=== PATIENT | male | born 1940 | race Caucasian/White ===

== ENCOUNTER → 2017-11-29 15:07 | Outpatient (CLI) | payer OTHER, SELFPAY ==
[2017-11-29 15:19] LABS: Bacteria Urine None Seen; RBC Urine None Seen (0-5/HPF); WBC Urine None Seen (0-5/HPF)
[2017-11-29 15:42] LABS: Appearance Urine UA CLEAR; Bilirubin Urine UA NEGATIVE (NEGATIVE); Color Urine UA YELLOW; Glucose Urine UA NEGATIVE (Normal); Ketones Urine UA NEGATIVE (NEGATIVE); Leukocyte Esterase Urine UA NEGATIVE (NEGATIVE); Nitrite Urine UA Negative (Negative); Occult Blood Urine UA NEGATIVE (Negative); Protein Urine UA NEGATIVE (Negative); Specific Gravity Urine UA <=1.005 (1.000-1.035); Urobilinogen Urine UA 0.2 E.U./dL (0.2)
[2017-11-29 15:51] LABS: Culture Indicated Urine Cult Not Indicated; Squamous Epithelial Cell Urine 0-1 /HPF; Urine Comments Microscopic Normal
[2017-11-29 16:00] LABS: Add Manual Diff / Slide Review NO; Basophils Percent Auto 0.5 % (0-2); Eosinophils Percent Auto 0.3 % (2-4); Hematocrit 44.6 % (41-53); Hemoglobin 15.6 g/dL (13.5-17.5); Lymphocytes Percent Auto 15.2 % (25-40); Mean Corpuscular Hemoglobin 32.2 PG (26-34); Monocytes Percent Auto 2.3 % (3-14); Neutrophils Absolute Auto 5600 /uL (3000-5900); Neutrophils Percent Auto 81.7 % (50-75); Platelet Count 279 X10^3/uL (150-400); Red Blood Cell Count 4.85 X10^6/uL (4.5-5.9); White Blood Cell Count 6.9 X10^3/uL (4.5-11.0)
[2017-11-29 16:06] LABS: Hemoglobin A1C% w Est Avg Glu 5.6 % (4.0-6.0)
[2017-11-29 16:35] LABS: Blood Urea Nitrogen 20 mg/dL (9-20); Calcium 9.8 mg/dL (8.4-10.2); Carbon Dioxide 26 mmol/L (22-32); Chloride 102 mmol/L (98-107); Estimated Glomerular Filt Rate > 60.0 mL/min (>60); Glucose 165 mg/dL (80-110); HEMOLYSIS < 15 (0-50); Potassium 5.1 mmol/L (3.4-5.1); Sodium 139 mmol/L (137-145)
[2017-11-29 16:43] LABS: Transferrin 264 mg/dL (206-381)
== END ==
PROVIDERS: PCP Family Medicine; Visit Provider Orthopaedic Surgery
DX: Z01.818 Encounter for other preprocedural examination (principal); M25.561 Pain in right knee; Z01.812 Encounter for preprocedural laboratory examination; D64.9 Anemia, unspecified; R73.9 Hyperglycemia, unspecified
CPT/HCPCS: 36415; 80048; 81001; 83036; 84466; 85025; 93005

== ENCOUNTER 2017-12-18 07:53 | Day surgery (SDC) | payer OTHER, SELFPAY ==
[2017-12-04 08:49] VITALS: BMI 33.8
[2017-12-18] VITALS (10 sets, daily range): BP systolic 121–144; BP diastolic 77–89; PULSE 61–69; RESP 10–16; TEMP 36–36.7; O2SAT 93–98; BMI 32.5
--- NOTE | 2017-12-18 08:54 | SUR.PREOP ---
small abrasion on left knee, small scab on left hand between thumb and second finger, 2 small scabs right arm.
[2017-12-18] MEDS: LACTATED RINGERS 1,000 ML 42 ML IV (09:10)
--- NOTE | 2017-12-18 09:49 | PM.PREOP ---
Pre-operative Note Interval Note Pre-op Check: Yes History & Physical Reviewed by Physician and Yes Exam Performed Changes: No
[2017-12-18] MEDS: CEFAZOLIN 2 GM/100 ML FROZ.PIGGY IV (10:50)
[2017-12-18] MEDS: BUPIVACAINE 0.25% W/ EPI VIAL 50 ML INJ (11:10)
[2017-12-18] MEDS: BUPIVACAINE LIPOSOME 266 MG/20 ML VIAL INJ (11:11)
[2017-12-18] MEDS: MORPHINE 4 MG/ML INJ INJ (11:12)
--- NOTE | 2017-12-18 12:08 | DI.RAD.S_ITS ---
PROCEDURE: XR KNEE RT 1TO2V INDICATIONS: post op total knee TECHNIQUE: 2 view(s) of the knee acquired. COMPARISON: [facility], CR, XR KNEE ARTHRITIC SERIES RT, 10/17/2017, 13:37. FINDINGS: Bones: Patient is status post knee joint arthroplasty. Hardware components are in expected positions. Visualized bony structures are intact. Soft tissues: Overlying postoperative changes are noted. IMPRESSION: Right knee arthroplasty with prosthesis in anatomic alignment. Dictated by: Hellen Chandra M.D. on 12/18/2017 at 13:04 Approved by: Hellen Chandra M.D. on 12/18/2017 at 13:05
--- NOTE | 2017-12-18 12:14 | PM.OP.1 ---
Operative Date/Time/Diagnoses Date of procedure: 12/18/17 Time of procedure: 12:00 Pre-op diagnosis: Right knee patellar fracture with loosening of patellar component Post-op diagnosis: same Procedure & Clinicians Procedure: 1. Revision of patellar component. 2. Open excision of loose bodies. Same procedure as scheduled: Yes Indications: The patient is a 77-year-old man who had a previously well-functioning total knee replacement. He developed the onset of peripatellar pain and new x-rays were obtained showing a patellar fracture with loosening of the patellar component. He has agreed to revision of the component and removal of loose fragments of bone and cement after discussion the risks benefits and alternatives. Risks discussed included but were not limited to: Possible need for patellectomy, failure to relieve pain, failure to improve function, stiffness, infection, nerve damage, deep venous thrombosis, pulmonary embolism, stroke, myocardial infarction, permanent paralysis and . Surgeon: Yong Hinkle Assistant Prosecuting Attorney: Yani Marin Click Yes if Unassisted: No Anesthesia Type: General and Local Operative Notes Findings: Loose fragments of cement and bone and partially loose patellar component. Closure Type: primary Specimen(s): none sent Implants & Drains: A 32 mm oval Pat II patellar component was removed. This was replaced with a 29 mm component. Applied: implant(s) Estimated Blood Loss (mL): 50 Blood products transfused: none Tourniquet time (min): 35 Procedure in detail: The patient was seen in the pre-operative area, where the patient identified the right knee as the operative site and this was marked with my initials. The patient received pre-operative antibiotics, and was taken to the operating room and placed on the operative table in the supine position. After satisfactory anesthesia, a stone lathe operator out was performed. The right leg was encircled with a tourniquet about the proximal thigh, and the leg was prepared from the toes to the tourniquet with ChloroPrep in the usual fashion and draped through sterile drapes. The leg was elevated and exsanguinated with Eschmark bandage and the tourniquet inflated to 250 mmHg pressure. The knee was approached through an approximately 18 cm incision using the prior scar and carried into the knee through a medial parapatellar arthrotomy. A large fragment of cement was immediately encountered just proximal to the tibial component and this was removed. The soft tissue surrounding the patella was excised to allow exploration of the patellar component. Three fragments of bone that were identified on the x-rays were identified and removed. I used an osteotome to determine whether the patellar component was loose and it appeared that the lateral portion of the patella was loose so the medial portion still had some fixation to bone. An oscillating saw was used to remove the component. A drill pin was used to remove the pegs. Loose cement was then removed. The partial-thickness defect in the quadriceps tendon that had been created by excision of the bone fragment was repaired with a #1 Tycron. The lug holes were drilled for the new patellar component. The patella was prepared with pulsatile lavage and the new patellar component cemented into position. Tracking was inspected and there was no need for lateral release. During cement hardening the capsule and subcutaneous tissues were injected with a mixture of 20 mL Exparel, 50 mL 0.25% Marcaine and 4 mg of morphine. The knee was copiously irrigated and the tourniquet deflated. Hemostasis was obtained. The capsule was closed with interrupted # 2 polyester suture. The subcutaneous layer was closed with 3-0 Vicryl, and the skin with a running 3-0 V-Lock suture and SteriStrips. An Aquacel Ag dressing was applied and the patient was taken to recovery having tolerated the procedure well. Complications: none Condition: stable Disposition: PACU Plan for aftercare: The patient will be maintained on a standard total knee protocol with strengthening of the quadriceps and hamstrings and gait as tolerated. Our plan is to discharge him today provided he has adequate pain control.
[2017-12-18] MEDS: HYDROMORPHONE 2 MG INJ 0.25 MG IV ×4 (12:24→12:39)
[2017-12-18] MEDS: fentaNYL 100 MCG/2 ML INJ 50 MCG IV ×2 (12:43→12:50)
[2017-12-18] MEDS: OXYCODONE IR 5 MG TABLET PO (12:58)
[2017-12-18] MEDS: OXYCODONE/ACETAMINOPHEN 5/325 TABLET 1 TAB PO (13:32)
--- NOTE | 2017-12-18 14:42 | SUR.PHASEII ---
1430 Patient and returned to the ER entrance (phone message by desk staff) stating that patient was bleeding through the dressing. Dressing was not completely saturated, but was by about 60-70%. Small amount of blood through louis wrap approx 2 diameter between 2 areas. Louis reinforced with ABD and wrapped with gauze. Does not appear to be currently bleeding. Patient appeared stable, color good, calm demeanor. They will call the surgeons office if bleeding does not stop or to clarify any instructions not on their discharge instructions.
== END 2017-12-18 14:03 | disposition home or self-care (01) ==
PROVIDERS: PCP Family Medicine; Visit Provider Orthopaedic Surgery
PROC: 0SRC0JZ Replacement of Right Knee Joint with Synthetic Substitute, Open Approach (ICD-10-PCS; CPT 27447; 2017-12-18 10:15)
DX: S82.041A Displaced comminuted fracture of right patella, initial encounter for closed fracture (principal); T84.032A Mechanical loosening of internal right knee prosthetic joint, initial encounter; M23.41 Loose body in knee, right knee; Z96.651 Presence of right artificial knee joint; Z87.891 Personal history of nicotine dependence; G47.30 Sleep apnea, unspecified
CPT/HCPCS: 27524; 73560; C1776; C9290; J0690; J1100; J1170; J2270; J2405; J2704; J3010

== ENCOUNTER 2018-05-22 07:25 | Outpatient (CLI) | payer OTHER, SELFPAY ==
[2018-05-22] VITALS (15 sets, daily range): BP systolic 124–148; BP diastolic 64–99; PULSE 55–69; RESP 16–18; TEMP 36.6; O2SAT 94–100
[2018-05-22] MEDS: MIDAZOLAM 5 MG/5 ML VIAL IV (08:38)
[2018-05-22] MEDS: LIDOCAINE 1% 20 ML INJ 10 ML INJ (08:56)
[2018-05-22] MEDS: BUPIVACAINE 0.25% (PF) VIAL 5 ML INJ (08:56)
--- NOTE | 2018-05-22 09:29 | P.PCN_ITS ---
Procedures Date/Time Date of procedure: 05/22/18 Time of procedure: 09:28 General Procedure description: PREOP DIAGNOSIS 1. RECALCITRANT FACET ARTHROPATHY, POST OP DIAGNOSIS 1. RECALCITRANT FACET ARTHROPATHY PROCEDURES 1. BILATERAL L4 AND L5 MEDIAL BRANCH RADIOFREQUENCY NEUROTOMY AND S1 DORSAL RAMUS BRANCH RADIOFREQUENCY NEUROTOMY, PHYSICIAN: Rafiq Busch DO INDICATIONS: Brian is referred by for treatment of facet arthropathy. DESCRIPTION OF PROCEDURE Bilateral L4 and L5 medial branch radiofrequency neurotomy and right S1 dorsal ramus radiofrequency neurotomy under fluoroscopy with conscious sedation. The patient is well known to this clinic having undergone previous facet injections with good but temporary relief. The patient has experienced appropriate, concordant relief with previous facet and median branch blocks but the patient's pain has been recalcitrant to further conservative measures. Therefore, based upon the patient's relief and persistent symptoms, the patient is considered an appropriate candidate for facet rhizotomy. All of the patient' s questions regarding the risks versus benefits of the procedure, including, but not limited to, bleeding, infection, temporary as well as lasting nerve injury, paralysis, stroke, and , as well treatment alternatives were answered to satisfaction. After obtaining informed consent, denial of pertinent drug allergies, as well as being made aware of the potential risks of bleeding, infection, spinal cord trauma, paralysis, temporary and permanent nerve damage, seizure, stroke, and possible , the patient was brought to the fluoroscopy suite and positioned prone on the fluoroscopy table. The lumbar region was prepped with Betadine and covered with a fenestrated drape in the usual sterile fashion. Appropriate monitors applied including pulse oximeter, pulse, and blood pressure for regular monitoring throughout the procedure. After review of previous anaesthesic history and IV conscious sedation the patient was deemed safe to proceed with todays procedure with IV conscious sedation as ASA class II designation. Safety time-out was performed to confirm patient ID, procedure to be performed and site of procedure. IV sedation was accomplished with a combination of 5mg of Versed administered by the RN after DO order, titrated to patient comfort during the course of the procedure while the patient remained responsive to all verbal commands. After local infiltration using 1% lidocaine, under fluoroscopic guidance, a 10- cm RF insulated needle with a 10-mm active tip was positioned parallel to the junction of the right sacral ala and the superior articulating process where the S1 dorsal ramus resides. Needle placement was confirmed with sensory stimulation at 50 Hz, with motor stimulation of .5v on the right which produced local stimulation without radicular component. The stimulation was then increased to 1.5v with, once again, only local multifidus stimulation without radicular component. This was then followed by two discreet lesions performed at 80 degrees Celsius for 90 seconds each. The needle was then removed and the identical procedure was performed along the length of the right L5 medial branch with motor stimulation at .7v on the right. The identical procedure was once again performed along the length of the right L4 medial branch with motor stimulation of .5v on the right. The identical procedure was repeated on the left. The patient tolerated the procedure well without signs or symptoms of complications prior to transfer to the recovery area continued monitoring without incident. The patient was then transferred to the recovery area where they were observed for an appropriate period of time after the injection. The patient reported a VAS score of 9 prior to the procedure and a post-procedure VAS of 0. Total Fluoroscopy Time: 22.7 seconds Total Conscious Sedation Time: 34min POST OP INSTRUCTIONS The patient was provided a Pain Log to continue to record the patient's response to the target-specific procedure prior to the patient's follow-up visit with the referring physician. Additionally, specific post-injection care instructions and a contact number to our office were provided if concerns arise regarding possible complications associated with the procedure are suspected. Rafiq Busch DO Complications: none
--- NOTE | 2018-05-22 09:42 | PC.NURSE ---
pt arrived via wheelchair with Sheila MUÑOZ, pt able to get into chair with stand by assist. Resumed monitoring.
--- NOTE | 2018-05-22 09:45 | DI.RAD.S_ITS ---
PROCEDURE: PAIN L/S MED/LAT N RFA BILAT INDICATIONS: Lumbosacral spondylosis FINDINGS: Fluoroscopic spot filming was performed to verify placement of spinal needles at the L4, L5, S1 level(s), as labeled on the films. Appropriate location(s) of the needle tip(s) was confirmed by injection of iodinated contrast. Dictated by: Chaz Horan M.D. on 05/23/2018 at 11:15 Approved by: Chaz Horan M.D. on 05/23/2018 at 11:16
== END 2018-05-22 10:15 ==
PROVIDERS: PCP Family Medicine; Visit Provider Physical Medicine & Rehabilitation
DX: M47.817 Spondylosis without myelopathy or radiculopathy, lumbosacral region (principal)
CPT/HCPCS: 64635; 64636; 99152; 99153; J2250

== ENCOUNTER 2019-01-16 07:13 | Outpatient (CLI) | payer OTHER, SELFPAY ==
[2019-01-16] VITALS (10 sets, daily range): BP systolic 113–141; BP diastolic 73–89; PULSE 58–70; RESP 14–16; TEMP 36.1; O2SAT 92–98
--- NOTE | 2019-01-16 07:15 | DI.RAD.S_ITS ---
PROCEDURE: PAIN L/S MED/LAT N RFA INDICATIONS: SPONDYLOSIS FINDINGS: Fluoroscopic spot filming was performed to verify placement of spinal needles at the L3, L4, L5, S1 level(s), as labeled on the films. Appropriate location(s) of the needle tip(s) was confirmed by injection of iodinated contrast. Dictated by: Chaz Horan M.D. on 01/16/2019 at 10:44 Approved by: Chaz Horan M.D. on 01/16/2019 at 10:46
[2019-01-16] MEDS: MIDAZOLAM 5 MG/5 ML VIAL IV (08:30)
[2019-01-16] MEDS: fentaNYL 100 MCG/2 ML INJ 50 MCG IV (08:30)
[2019-01-16] MEDS: LIDOCAINE 1% 20 ML INJ 10 ML INJ (08:50)
[2019-01-16] MEDS: BUPIVACAINE 0.5% (PF) VIAL 5 ML INJ (08:50)
[2019-01-16] MEDS: BETAMETHASONE 30 MG/5 ML MDV 12 MG INJ (08:51)
--- NOTE | 2019-01-16 09:11 | PC.NURSE ---
Pt tolerated procedure well. Able to get off table with 2 person standby assist. Transferred pt via wheelchair to pre procedure room for continued monitoring with Sheila MUÑOZ.
--- NOTE | 2019-01-16 09:20 | P.PCN_ITS ---
Procedures Date/Time Date of procedure: 01/16/19 Time of procedure: 09:17 General Procedure description: PREOP DIAGNOSIS 1. RECALCITRANT FACET ARTHROPATHY, POST OP DIAGNOSIS 1. RECALCITRANT FACET ARTHROPATHY, PROCEDURES 1. LEFTT L3, L4 AND L5 MEDIAL BRANCH RADIOFREQUENCY NEUROTOMY AND LEFT S1 DORSAL RAMUS RADIOFREQUENCY NEUROTOMY, PHYSICIAN: DO NITA Culver Brian is referred by for treatment of facet arthropathy. DESCRIPTION OF PROCEDURE Left L3, L4 and L5 medial branch radiofrequency neurotomy and left S1 dorsal ramus branch radiofrequency neurotomy under fluoroscopy with conscious sedation. The patient is well known to this clinic having undergone previous facet injections with good but temporary relief. The patient has experienced appropriate, concordant relief with previous facet and median branch blocks but the patient's pain has been recalcitrant to further conservative measures. Therefore, based upon the patient's relief and persistent symptoms, the patient is considered an appropriate candidate for facet rhizotomy. All of the patient's questions regarding the risks versus benefits of the procedure, including, but not limited to, bleeding, infection, temporary as well as lasting nerve injury, paralysis, stroke, and , as well treatment alternatives were answered to satisfaction. After obtaining informed consent, denial of pertinent drug allergies, as well as being made aware of the potential risks of bleeding, infection, spinal cord trauma, paralysis, temporary and permanent nerve damage, seizure, stroke, and possible , the patient was brought to the fluoroscopy suite and positioned prone on the fluoroscopy table. The lumbar region was prepped with Betadine and covered with a fenestrated drape in the usual sterile fashion. Appropriate monitors applied including pulse oximeter, pulse, and blood pressure for regular monitoring throughout the procedure. IV sedation was accomplished with a combination of 3mg of Versed and 50mcg of Fentanyl titrated to patient comfort during the course of the procedure while the patient remained responsive to all verbal commands. After local infiltration using 1% lidocaine, under fluoroscopic guidance, a 10-c m RF insulated needle with a 10-mm active tip was positioned parallel to the junction of the left sacral ala and the superior articulating process where the S1 dorsal ramus resides. Needle placement was confirmed with sensory stimulation at 50 Hz, with motor stimulation of .5v on the left which produced local stimulation without radicular component. The stimulation was then increased to 1.5v with, once again, only local multifidus stimulation without radicular component. This was then followed by two discreet lesions performed at 80 degrees Celsius for 90 seconds each. The needle was then removed and the identical procedure was performed along the length of the left L5 medial branch with motor stimulation at .7v on the leftt. The identical procedure was once again performed along the length of the left L4 medial branch with motor stimulation of .5v on the left. The identical procedure was once again performed along the length of the left L3 medial branch with motor stimulation of .5v on the left. The patient tolerated the procedure well without signs or symptoms of complications prior to transfer to the recovery area continued monitoring without incident. The patient was then transferred to the recovery area where they were observed for an appropriate period of time after the injection. The patient was then transferred to the recovery area where they were observed for a n appropriate period of time after the injection. The patient reported a VAS score of 7 prior to the procedure and a post- procedure VAS of 2. Total Fluoroscopy Time: 22.7 seconds Total Conscious Sedation Time: 34min POST OP INSTRUCTIONS The patient was provided a Pain Log to continue to record the patient's response to the target-specific procedure prior to the patient's follow-up visit with the referring physician. Additionally, specific post-injection care instructions and a contact number to our office were provided if concerns arise regarding possible complications associated with the procedure are suspected. Rafiq Busch DO Complications: none
--- NOTE | 2019-01-16 09:21 | PC.NURSE ---
ACCEPTED PT CARE IN POST PROC AREA. PT IN STABLE CONDITION
== END 2019-01-16 10:04 | disposition home or self-care (01) ==
LOC: RAD 07:14
PROVIDERS: PCP Internal Medicine; Visit Provider Physical Medicine & Rehabilitation
DX: M47.817 Spondylosis without myelopathy or radiculopathy, lumbosacral region (principal); M43.16 Spondylolisthesis, lumbar region; M47.816 Spondylosis without myelopathy or radiculopathy, lumbar region
CPT/HCPCS: 64635; 64636; 99152; 99153; J0702; J2250; J3010

== ENCOUNTER → 2020-04-05 08:51 | Outpatient (CLI) | payer OTHER, SELFPAY ==
--- NOTE | 2020-04-05 08:53 | DI.RAD.S_ITS ---
PROCEDURE: XR LUMBAR SPINE MIN 4V INDICATIONS: Lumbar radiculopathy TECHNIQUE: 5 views of the lumbar spine were acquired. COMPARISON: None. FINDINGS: Bones: 5 nonrib-bearing vertebrae are present. There is abnormal bony alignment with grade 1 anterolisthesis of L4 on L5. No vertebral body compression fractures. No suspicious bony lesions. There is a mild degree of degenerative disc height reduction at L3-4 and a [id number] degree of such degeneration at L4-5. Moderately severe disc height reduction is present at L5-S1. Facet osteoarthritis becomes progressively more prominent from L2 inferiorly and is most pronounced at L4-5 and L5-S1. Soft tissues: Overlying bowel gas pattern is normal. No suspicious soft tissue calcifications. Oblique images: No pars defects. IMPRESSION: Overall there is moderately severe to severe degenerative changes most pronounced at L5-S1 and both spinal and foraminal stenosis would be a expected from L3 inferiorly, progressively more prominent. Dictated by: Juan Antonio Duong M.D. on 04/05/2020 at 9:33 Approved by: Juan Antonio Duong M.D. on 04/05/2020 at 9:35
== END ==
PROVIDERS: PCP Internal Medicine; Referring Provider Internal Medicine; Visit Provider Physical Medicine & Rehabilitation
DX: M47.27 Other spondylosis with radiculopathy, lumbosacral region (principal); M43.16 Spondylolisthesis, lumbar region; M21.379 Foot drop, unspecified foot
CPT/HCPCS: 72110; 99214

== ENCOUNTER → 2020-04-19 14:27 | Outpatient (CLI) | payer OTHER, SELFPAY ==
[2020-04-19 15:42] LABS: COVID19 -Nasal RAPID Negative (Negative)
== END ==
PROVIDERS: PCP Internal Medicine; Visit Provider Physician Assistant
DX: Z01.812 Encounter for preprocedural laboratory examination (principal); Z20.828 Contact with and (suspected) exposure to other viral communicable diseases
CPT/HCPCS: 87635; C9803

== ENCOUNTER 2020-04-20 13:30 | Outpatient (CLI) | payer OTHER, SELFPAY ==
[2020-04-20] VITALS (9 sets, daily range): BP systolic 131–150; BP diastolic 72–83; PULSE 60–62; RESP 15–23; TEMP 36.3; O2SAT 94–100
--- NOTE | 2020-04-20 13:40 | DI.RAD.S_ITS ---
PROCEDURE: PAIN L/S TRANSFORAMINAL INJECT INDICATIONS: SPONDYLOSIS COMPARISON: [facility], CR, XR LUMBAR SPINE MIN 4V, 04/05/2020, 9:00. FINDINGS: Fluoroscopic spot filming was performed to verify placement of a spinal needle at the L4-L5 level, as labeled on the films. Appropriate location of the needle tip was confirmed by injection of iodinated contrast. IMPRESSION: Intraprocedural examination within normal limits. Dictated by: Fabio Santacruz M.D. on 04/20/2020 at 14:12 Approved by: Fabio Santacruz M.D. on 04/20/2020 at 14:21
[2020-04-20] MEDS: fentaNYL 100 MCG/2 ML INJ 50 MCG IV (14:30)
[2020-04-20] MEDS: MIDAZOLAM 5 MG/5 ML VIAL IV (14:30)
[2020-04-20] MEDS: IOPAMIDOL 15 ML VIAL 3 ML INJ (14:33)
[2020-04-20] MEDS: BETAMETHASONE 30 MG/5 ML MDV 6 MG INJ (14:34)
[2020-04-20] MEDS: DEXAMETHASONE 10 MG/ML VIAL 20 MG INJ (14:34)
[2020-04-20] MEDS: BUPIVACAINE 0.25% (PF) VIAL 2 ML INJ (14:34)
--- NOTE | 2020-04-20 14:45 | P.PCN_ITS ---
Date/Time/Diagnoses Date of procedure: 04/20/20 Time of procedure: 14:45 Pre-procedure diagnosis: 1. FORAMINAL STENOSIS WITH LE SYMPTOMS Post-procedure diagnosis: same Procedure Notes Procedure: 1. FLUOROSCOPICALLY GUIDED CONTRAST CONTROLLED TRANSFORAMINAL EPIDURAL STEROID INJECTION - LEFT L4/5 Indications: Brian is referred by Dr. Bacon for treatment of Foraminal Stenosis with Left LE Symptoms Physician: Rafiq Busch Total Fluoroscopy time (seconds): 11 Total sedation minutes: 12 Complications: none Procedure in detail & Post-procedure care: FINDINGS Foraminal Nerve Root Compression secondary to disc disease and facet hypertrophy DESCRIPTION OF PROCEDURE Following review of allergy and review of potential side effects and complications, including, but not necessarily limited to, infection, allergic reaction, local tissue breakdown, stroke, temporary or permanent nerve injury, paralysis, and possible , the patient indicated that the patient understood and agreed to proceed. An informed consent document was signed by the patient, witnessed by a nurse, and placed in the patient's chart. Additionally, other treatment options including medications, modalities, and physical therapy were reviewed with the patient. After review of previous anaesthesic history and IV conscious sedation the patient was deemed safe to proceed with today?s procedure with IV conscious sedation as ASA class II designation. Safety time-out was performed to confirm patient ID, procedure to be performed and site of procedure. IV sedation was accomplished with a combination of 2mg of Versed and 50mcg of Fentanyl administered by the RN after DO order, titrated to patient comfort during the course of the procedure while the patient remained responsive to all verbal commands In the prone position following sterile prep and drape of the lumbar region, the left L4/5 posterior neuroforamen was identified fluoroscopically. The skin was anesthetized via a 25-gauge 1.5-inch needle with 1% lidocaine solution. At this point, a 25-gauge 3.5-inch spinal needle was atraumatically introduced and advanced under fluoroscopic guidance through the posterior left L4/5 neuroforamen to approximately the anterior aspect of the canal. Depth was confirmed on lateral view. Following negative aspiration, injection of approximately 1.5 cc of Isovue 200 under live fluoroscopy in the AP view confirmed excellent flow along the nerve root, into the epidural space without vascular or intrathecal uptake observed Radiological data, including multiple fluoroscopic views of the lumbosacral spine, reveal a spinal needle at the left L4/5 posterior neuroforamen. Subsequent views show flow of contrast material flowing superiorly and inferiorly along the nerve root confirming epidural flow. Subsequently, a test dose of 1.5 cc of 1% lidocaine solution was administered and patient was observed for two minutes for signs or symptoms of complications, including abdominal pain, shortness of breath, bilateral upper or lower extremity weakness, nausea and vomiting, prior to steroid injection. At this point, a total of 3cc or 20mg of dexamethasone and 6mg of betamethasone was injected without incident. The procedure tolerated the procedure well without signs or symptoms of complications prior to transfer to the recovery area continued monitoring without incident. The patient was then transferred to the recovery area where they were observed for an appropriate time after the injection. The patient reported a VAS score of 7 prior to the procedure and a post- procedure VAS of 0. POST OP INSTRUCTIONS The patient was provided a Pain Log to continue to record their response to the target-specific procedure prior to follow-up visit with their referring physician. Additionally, specific post-injection care instructions and a contact number to our office were provided if concerns arise regarding possible complications associated with the procedure are suspected.
== END 2020-04-20 15:10 | disposition home or self-care (01) ==
PROVIDERS: Referring Provider Physical Medicine & Rehabilitation; Visit Provider Physical Medicine & Rehabilitation
DX: M43.16 Spondylolisthesis, lumbar region (principal); M54.16 Radiculopathy, lumbar region
CPT/HCPCS: 64483; 99152; J0702; J1100; J2250; J3010

== ENCOUNTER → 2020-05-19 10:54 | Outpatient (CLI) | payer OTHER, SELFPAY ==
--- NOTE | 2020-05-19 10:56 | DI.RAD.S_ITS ---
PROCEDURE: XR CERVICAL SPINE 4V OR 5V INDICATIONS: neck pain TECHNIQUE: 6 views of the cervical spine acquired. COMPARISON: [facility] [place], CR, XR CERVICAL SPINE WITH OBLIQUES, 07/24/2017, 13:37. FINDINGS: Bones: No fracture. Multilevel degenerative endplate sclerosis and spurring. Diffuse facet arthropathy. Severe narrowing of the cervical disc spaces diffusely. Mild left C3-C4 and C4-C5 bony foraminal stenosis. No interval change. Moderate C3-C4, C4-C5 , C5-C6, C6-C7 bony foraminal stenosis. No interval change. Soft tissues: Carotid atherosclerotic plaques incidentally noted. IMPRESSION: Severe cervical spondylosis and facet arthropathy Diffuse bilateral bony foraminal stenoses without definite interval change Dictated by: Chaz Horan M.D. on 05/19/2020 at 11:44 Approved by: Chaz Horan M.D. on 05/19/2020 at 11:48
== END ==
PROVIDERS: Referring Provider Physical Medicine & Rehabilitation; Visit Provider Physical Medicine & Rehabilitation
DX: M47.812 Spondylosis without myelopathy or radiculopathy, cervical region (principal); M43.16 Spondylolisthesis, lumbar region; M47.819 Spondylosis without myelopathy or radiculopathy, site unspecified
CPT/HCPCS: 72050; 99214

== ENCOUNTER 2021-03-03 10:36 | Outpatient (CLI) | payer OTHER, SELFPAY ==
[2021-03-03] VITALS (7 sets, daily range): BP systolic 126–142; BP diastolic 76–86; PULSE 59–64; RESP 12–21; TEMP 36.2; O2SAT 98–100
--- NOTE | 2021-03-03 10:38 | DI.RAD.S_ITS ---
PROCEDURE: PAIN L/S TRANSFORAMINAL INJECT INDICATIONS: SPONDYLOSIS COMPARISON: [facility], , PAIN L/S TRANSFORAMINAL INJECT, 04/20/2020, 14:33. FINDINGS: Fluoroscopic spot filming was performed to verify placement of a spinal needle at the L4-L5 level, as labeled on the films. Appropriate location of the needle tip was confirmed by injection of iodinated contrast. IMPRESSION: Intraprocedural examination within normal limits. Dictated by: Fabio Santacruz M.D. on 03/03/2021 at 12:23 Approved by: Fabio Santacruz M.D. on 03/03/2021 at 12:24
[2021-03-03] MEDS: MIDAZOLAM 5 MG/5 ML VIAL IV (11:35)
[2021-03-03] MEDS: BUPIVACAINE 0.25% (PF) VIAL 2 ML INJ (11:38)
[2021-03-03] MEDS: IOPAMIDOL 15 ML VIAL 3 ML INJ (11:38)
[2021-03-03] MEDS: BETAMETHASONE 30 MG/5 ML MDV 12 MG INJ (11:39)
[2021-03-03] MEDS: DEXAMETHASONE 10 MG/ML VIAL 20 MG INJ (11:40)
--- NOTE | 2021-03-03 11:56 | P.PCN_ITS ---
Date/Time/Diagnoses Date of procedure: 03/03/21 Time of procedure: 11:56 Pre-procedure diagnosis: 1. FORAMINAL STENOSIS WITH LE SYMPTOMS Post-procedure diagnosis: same Procedure Notes Procedure: 1. FLUOROSCOPICALLY GUIDED CONTRAST CONTROLLED TRANSFORAMINAL EPIDURAL STEROID INJECTION - RIGHT L4/5 TFESI Indications: Brian is referred for treatment of Foraminal Stenosis with Right LE Symptoms Physician: Rafiq Busch Total Fluoroscopy time (seconds): 29 Total sedation minutes: 18 Complications: none Procedure in detail & Post-procedure care: FINDINGS Foraminal Nerve Root Compression secondary to disc disease and facet hypertrophy DESCRIPTION OF PROCEDURE Following review of allergy and review of potential side effects and complications, including, but not necessarily limited to, infection, allergic reaction, local tissue breakdown, stroke, temporary or permanent nerve injury, paralysis, and possible , the patient indicated that the patient understood and agreed to proceed. An informed consent document was signed by the patient, witnessed by a nurse, and placed in the patient's chart. Additionally, other treatment options including medications, modalities, and physical therapy were reviewed with the patient. After review of previous anaesthesic history and IV conscious sedation the patient was deemed safe to proceed with today?s procedure with IV conscious se dation as ASA class II designation. Safety time-out was performed to confirm patient ID, procedure to be performed and site of procedure. IV sedation was accomplished with a combination of 2mg of Versed was administered by the RN after DO order, titrated to patient comfort during the course of the procedure while the patient remained responsive to all verbal commands In the prone position following sterile prep and drape of the lumbar region, the right L4/5 posterior neuroforamen was identified fluoroscopically. The skin was anesthetized via a 25-gauge 1.5-inch needle with 1% lidocaine solution. At this point, a 25-gauge 3.5-inch spinal needle was atraumatically introduced and advanced under fluoroscopic guidance through the posterior right L4/5 neuroforamen to approximately the anterior aspect of the canal. Depth was confirmed on lateral view. Following negative aspiration, injection of approximately 1.5cc of Isovue 200 under live fluoroscopy in the AP view confirmed excellent flow along the nerve root, into the epidural space without vascular or intrathecal uptake observed Radiological data, including multiple fluoroscopic views of the lumbosacral spine, reveal a spinal needle at the right L4/5 posterior neuroforamen. Subsequent views show flow of contrast material flowing superiorly and inferiorly along the nerve root confirming epidural flow. Subsequently, a test dose of 1.5 cc of 1% lidocaine solution was administered and patient was observed for two minutes for signs or symptoms of complications, including abdominal pain, shortness of breath, bilateral upper or lower extremity weakness, nausea and vomiting, prior to steroid injection. At this point, a total of 4cc or 20mg of dexamethasone and 12mg of betamethasone was injected without incident. The procedure tolerated the procedure well without signs or symptoms of complications prior to transfer to the recovery area continued monitoring without incident. The patient was then transferred to the recovery area where they were observed for an appropriate time after the injection. The patient reported a VAS score of 7 prior to the procedure and a post- procedure VAS of 0. POST OP INSTRUCTIONS The patient was provided a Pain Log to continue to record their response to the target-specific procedure prior to follow-up visit with their referring physician. Additionally, specific post-injection care instructions and a contact number to our office were provided if concerns arise regarding possible complications associated with the procedure are suspected.
== END 2021-03-03 12:26 | disposition home or self-care (01) ==
LOC: RAD 10:36
PROVIDERS: Referring Provider Physical Medicine & Rehabilitation; Visit Provider Physical Medicine & Rehabilitation
DX: M48.061 Spinal stenosis, lumbar region without neurogenic claudication (principal); M51.16 Intervertebral disc disorders with radiculopathy, lumbar region
CPT/HCPCS: 64483; 99152; J0702; J1100; J2250

== ENCOUNTER → 2021-08-09 13:44 | Outpatient (CLI) | payer OTHER, SELFPAY ==
[2021-08-09 17:10] LABS: COVID19 -Nasal RAPID Negative (Negative)
== END ==
PROVIDERS: Visit Provider Physical Medicine & Rehabilitation
DX: Z20.822 Contact with and (suspected) exposure to COVID-19 (principal)
CPT/HCPCS: 87635; C9803

== ENCOUNTER 2021-08-11 14:05 | Outpatient (CLI) | payer OTHER, SELFPAY ==
[2021-08-11] VITALS (9 sets, daily range): BP systolic 129–151; BP diastolic 73–91; PULSE 60–62; RESP 13–22; TEMP 36.4; O2SAT 92–100
--- NOTE | 2021-08-11 14:13 | DI.RAD.S_ITS ---
PROCEDURE: PAIN L/S FACET INJ/BLK 1ST PRIMO COMPARISON: None. INDICATIONS: Spondylosis FINDINGS: Access needles at the bilateral L3-L4, L4-L5, L5-S1 and S1-S2 neural foramina. Injection of small amount of contrast material demonstrates the needle tips are extra thecal. IMPRESSION: Access needles at the bilateral L3-L4, L4-L5, L5-S1 and S1-S2 neural foramina for bilateral L3, L4, L5 and S1 medial branch block. Dictated by: Amie Pantoja MD, PhD on 08/11/2021 at 16:43 Approved by: Amie Pantoja MD, PhD on 08/11/2021 at 16:45
[2021-08-11] MEDS: MIDAZOLAM 2 MG/2 ML VIAL (14:57)
[2021-08-11] MEDS: IOPAMIDOL 15 ML VIAL INJ (15:01)
[2021-08-11] MEDS: LIDOCAINE 1% 20 ML (15:01)
[2021-08-11] MEDS: BUPIVACAINE 0.5% (PF) VIAL 30 ML (15:01)
[2021-08-11] MEDS: fentaNYL 100 MCG/2 ML INJ (15:08)
--- NOTE | 2021-08-11 15:18 | P.PCN_ITS ---
Date/Time/Diagnoses Date of procedure: 08/11/21 Time of procedure: 15:18 Pre-procedure diagnosis: 1. FACET ARTHROPATHY Post-procedure diagnosis: same Procedure Notes Procedure: 1. BILATERAL- L3, L4, L5 and S1 DIAGNOSTIC MB BLOCKS with LA Anesthetic Indications: Brian is referred by Dr. Bacon for treatment of Bilateral Axial LBP. Physician: Rafiq Busch Total Fluoroscopy time (seconds): 15 Total sedation minutes: 16 Complications: none Procedure in detail & Post-procedure care: DESCRIPTION OF PROCEDURE Fluoroscopically guided, contrast-controlled bilateral L3, L4, L5 and S1 medial branch blocks with 0.5cc of 0.5% Marcaine. Following review of allergy and review of potential side effects and complications, including, but not necessarily limited to, infection, allergic reaction, local tissue breakdown, nerve injury, paralysis, stroke and possible , the patient indicated that the patient understood and agreed to proceed. An informed consent document was signed by the patient, witnessed by a nurse, and placed in the patient's chart. After review of previous anaesthesic history and IV conscious sedation the patient was deemed safe to proceed with today's procedure with IV conscious s edation as ASA class II designation. Safety time-out was performed to confirm patient ID, procedure to be performed and site of procedure. IV sedation was accomplished with a combination of 2mg of Versed and 100mcg of Fentanyl was administered by the RN after DO order, titrated to patient comfort during the course of the procedure while the patient remained responsive to all verbal commands. In the prone position, following sterile prep and drape of the lumbar region, the right L3, L4, L5 and S1 anatomical location of the medial branch of the dorsal ramus was identified fluoroscopically. Subsequently an anesthetic skin wheal using 1% lidocaine solution was initiated at each of the anatomical spots. Subsequently then a 22-gauge 3.5-inch spinal needle was atraumatically introduced and advanced under fluoroscopic guidance at each of the corresponding sites at the right L3, L4, L5 and S1 MB. After negative aspiration, 0.2cc of Isovue 200 was injected, confirming placement without vascular or intrathecal uptake. Subsequently then 0.5cc of 0.5% Marcaine solution was injected at each of the corresponding sites at the right L3, L4, L5 and S1 medial branch locations. The identical procedure was replicated on the left. The patient tolerated the procedure well without signs or symptoms of complications prior to transfer to the recovery area continued monitoring without incident. Post-procedure, the patient was monitored initiating provocative activities to measure the amount of relief from block of the facetogenic pain. The patient reported a VAS of 7 prior to the procedure and a post-procedure VAS of 1. It has been a pleasure to assist in the diagnostic and therapeutic care of your patient. POST OP INSTRUCTIONS The patient was provided with a Pain Log to complete over the next several hours and subsequent days prior to the patient's follow up with the ordering physician. If the patient has cardiac cath lab technologist relief to the solution applied, then they may be a candidate for medial branch rhizotomy. The patient is aware, was provided, once again, with a Pain Log and will follow up with the referring physician for review and clinical correlation
== END 2021-08-11 15:39 | disposition home or self-care (01) ==
LOC: RAD 14:12
PROVIDERS: PCP Internal Medicine; Referring Provider Physical Medicine & Rehabilitation; Visit Provider Physical Medicine & Rehabilitation
DX: M47.816 Spondylosis without myelopathy or radiculopathy, lumbar region (principal); M47.817 Spondylosis without myelopathy or radiculopathy, lumbosacral region
CPT/HCPCS: 64493; 64495; 99152; J2250; J3010

== ENCOUNTER 2022-06-13 06:08 | Outpatient (CLI) | payer OTHER, SELFPAY ==
[2022-06-13] VITALS (9 sets, daily range): BP systolic 116–161; BP diastolic 68–88; PULSE 60–68; RESP 12–18; TEMP 36.6; O2SAT 95–100
--- NOTE | 2022-06-13 06:19 | DI.RAD.S_ITS ---
PROCEDURE: PAIN L/S TRANSFORAMINAL INJECT INDICATIONS: SPONDYLOSIS COMPARISON: [facility], , PAIN L/S TRANSFORAMINAL INJECT, 03/03/2021, 11:37. FINDINGS: Fluoroscopic spot filming was performed to verify placement of a spinal needle at the L4-L5 level, as labeled on the films. Appropriate location of the needle tip was confirmed by injection of iodinated contrast. IMPRESSION: Intraprocedural examination within normal limits. Dictated by: Fabio Santacruz M.D. on 06/13/2022 at 9:15 Approved by: Fabio Santacruz M.D. on 06/13/2022 at 9:16
[2022-06-13] MEDS: MIDAZOLAM 2 MG/2 ML VIAL IV (08:40)
[2022-06-13] MEDS: IOPAMIDOL 15 ML VIAL 3 ML INJ (08:46)
[2022-06-13] MEDS: BETAMETHASONE 30 MG/5 ML MDV 6 MG INJ (08:46)
[2022-06-13] MEDS: DEXAMETHASONE 10 MG/ML VIAL 20 MG INJ (08:47)
[2022-06-13] MEDS: BUPIVACAINE 0.5% (PF) 10 ML VIAL 5 ML SUBCUT (08:48)
--- NOTE | 2022-06-13 09:03 | P.PCN_ITS ---
Date/Time/Diagnoses Date of procedure: 06/13/22 Time of procedure: 09:03 Pre-procedure diagnosis: 1. FORAMINAL STENOSIS WITH LE SYMPTOMS Post-procedure diagnosis: same Procedure Notes Procedure: 1. FLUOROSCOPICALLY GUIDED CONTRAST CONTROLLED TRANSFORAMINAL EPIDURAL STEROID INJECTION - LEFT L4/5 Indications: Brian is referred for treatment of Foraminal Stenosis with Left LE Symptoms Physician: Rafiq Busch Total Fluoroscopy time (seconds): 10 Total sedation minutes: 14 Complications: none Procedure in detail & Post-procedure care: FINDINGS Foraminal Nerve Root Compression secondary to disc disease and facet hypertrophy DESCRIPTION OF PROCEDURE Following review of allergy and review of potential side effects and complications, including, but not necessarily limited to, infection, allergic reaction, local tissue breakdown, stroke, temporary or permanent nerve injury, paralysis, and possible , the patient indicated that the patient understood and agreed to proceed. An informed consent document was signed by the patient, witnessed by a nurse, and placed in the patient's chart. Additionally, other treatment options including medications, modalities, and physical therapy were reviewed with the patient. After review of previous anaesthesic history and IV conscious sedation the patient was deemed safe to proceed with today?s procedure with IV conscious sedation as ASA class II designation. Safety time-out was performed to confirm patient ID, procedure to be performed and site of procedure. IV sedation was accomplished with a combination of 2mg of Versed administered by the RN after DO order, titrated to patient comfort during the course of the procedure while the patient remained responsive to all verbal commands In the prone position following sterile prep and drape of the lumbar region, the left L4/5 posterior neuroforamen was identified fluoroscopically. The skin was anesthetized via a 25-gauge 1.5-inch needle with 1% lidocaine solution. At this point, a 22-gauge 5-inch spinal needle was atraumatically introduced and advanced under fluoroscopic guidance through the posterior left L4/5 neuroforamen to approximately the anterior aspect of the canal. Depth was confirmed on lateral view. Following negative aspiration, injection of approximately 1.5 cc of Isovue 200 under live fluoroscopy in the AP view confirmed excellent flow along the nerve root, into the epidural space without vascular or intrathecal uptake observed Radiological data, including multiple fluoroscopic views of the lumbosacral spine, reveal a spinal needle at the left L4/5 posterior neuroforamen. Subsequent views show flow of contrast material flowing superiorly and inferiorly along the nerve root confirming epidural flow. Subsequently, a test dose of 1.5 cc of 1% lidocaine solution was administered and patient was observed for two minutes for signs or symptoms of complications, including abdominal pain, shortness of breath, bilateral upper or lower extremity weakness, nausea and vomiting, prior to steroid injection. At this point, a total of 3cc or 20mg of dexamethasone and 6mg of betamethasone was injected without incident. The procedure tolerated the procedure well without signs or symptoms of complications prior to transfer to the recovery area continued monitoring without incident. The patient was then transferred to the recovery area where they were observed for an appropriate time after the injection. The patient reported a VAS score of 7 prior to the procedure and a post- procedure VAS of 0. POST OP INSTRUCTIONS The patient was provided a Pain Log to continue to record their response to the target-specific procedure prior to follow-up visit with their referring physician. Additionally, specific post-injection care instructions and a contact number to our office were provided if concerns arise regarding possible complications associated with the procedure are suspected.
== END 2022-06-13 09:15 | disposition home or self-care (01) ==
LOC: RAD 06:10
PROVIDERS: Referring Provider Physical Medicine & Rehabilitation; Visit Provider Physical Medicine & Rehabilitation
DX: M48.061 Spinal stenosis, lumbar region without neurogenic claudication (principal); M51.16 Intervertebral disc disorders with radiculopathy, lumbar region
CPT/HCPCS: 64483; 99152; J0702; J1100; J2250

== ENCOUNTER → 2022-07-27 11:22 | Outpatient (CLI) | payer OTHER, SELFPAY ==
--- NOTE | 2022-07-27 11:24 | DI.RAD.S_ITS ---
PROCEDURE: XR CERVICAL SPINE 4V OR 5V INDICATIONS: NECK PAIN TECHNIQUE: Five views of the cervical spine acquired. COMPARISON: [facility], CR, XR CERVICAL SPINE 4V OR 5V, 05/19/2020, 10:56. FINDINGS: Bones: No fractures or dislocations to the C6 level. Moderate disc height loss C3-4, C4-5, and severe disc height loss C5-6. Endplate irregularity and spurring present. Mild facet arthropathy bilaterally. Moderate foraminal narrowing secondary to osteophytosis at multiple levels, more pronounced left than right. Soft tissues: No prevertebral soft tissue swelling. Mild atherosclerotic calcification in the region of both carotid bulbs. IMPRESSION: 1. Moderate to severe multilevel spondylosis and bilateral foraminal narrowing from C3 through C6. Dictated by: Sakshi Myers M.D. on 07/27/2022 at 12:13 Approved by: Sakshi Myers M.D. on 07/27/2022 at 12:19
== END ==
PROVIDERS: Referring Provider Physical Medicine & Rehabilitation; Visit Provider Physical Medicine & Rehabilitation
DX: M47.812 Spondylosis without myelopathy or radiculopathy, cervical region (principal); M48.02 Spinal stenosis, cervical region; M54.2 Cervicalgia
CPT/HCPCS: 72050

== ENCOUNTER → 2022-11-29 07:39 | Outpatient (CLI) | payer OTHER, SELFPAY ==
--- NOTE | 2022-11-29 07:40 | DI.RAD.S_ITS ---
PROCEDURE: XR LUMBAR SPINE MIN 4V INDICATIONS: BACK PAIN TECHNIQUE: 5 views of the lumbar spine were acquired, including bilateral oblique views. COMPARISON: [facility], , XR LUMBAR SPINE MIN 4V, 04/05/2020, 9:00. FINDINGS: Bones: 5 nonrib-bearing vertebrae are present. Grade 1 anterolisthesis of L4 on L5 secondary to facet arthrosis. No vertebral body compression fractures. No suspicious bony lesions. Mild to moderate disc height loss at all levels. Facet arthrosis L2 through S1. Mild vertebral body height loss at L1, similar to prior. Soft tissues: Overlying bowel gas pattern is normal. No suspicious soft tissue calcifications. Oblique images: No pars defects. IMPRESSION: Mild to moderate, multilevel degenerative disc disease at all levels, with diffuse facet arthrosis. Stable grade 1 anterolisthesis of L4 on L5 secondary to facet arthrosis. Dictated by: Taqueria Child M.D. on 11/29/2022 at 8:43 Approved by: Taqueria Child M.D. on 11/29/2022 at 8:44
== END ==
PROVIDERS: PCP Registered Nurse; Referring Provider Physical Medicine & Rehabilitation; Visit Provider Physical Medicine & Rehabilitation
DX: M51.36 Other intervertebral disc degeneration, lumbar region (principal); M43.16 Spondylolisthesis, lumbar region; M47.817 Spondylosis without myelopathy or radiculopathy, lumbosacral region; M47.816 Spondylosis without myelopathy or radiculopathy, lumbar region; M48.02 Spinal stenosis, cervical region; M17.31 Unilateral post-traumatic osteoarthritis, right knee; I48.20 Chronic atrial fibrillation, unspecified; Z96.651 Presence of right artificial knee joint
CPT/HCPCS: 72110; 99215

== ENCOUNTER 2022-12-28 08:22 | Outpatient (CLI) | payer OTHER, SELFPAY ==
[2022-12-28] VITALS (8 sets, daily range): BP systolic 114–176; BP diastolic 72–91; PULSE 60–67; RESP 14–22; TEMP 36.3; O2SAT 97–100
--- NOTE | 2022-12-28 08:23 | DI.RAD.S_ITS ---
PROCEDURE: PAIN C/T INTERLAMINAR INJECT INDICATIONS: RADICULOPATHY COMPARISON: [facility], MR, MR CERVICAL SPINE WITHOUT CONTRAST, 09/27/2022, 8:36. FINDINGS: Fluoroscopic spot filming was performed to verify placement of a spinal needle at the C6-C7 level, as labeled on the films. Appropriate location of the needle tip was confirmed by injection of iodinated contrast. IMPRESSION: No significant intraprocedural abnormality. Dictated by: Fabio Santacruz M.D. on 12/28/2022 at 12:15 Approved by: Fabio Santacruz M.D. on 12/28/2022 at 12:15
[2022-12-28] MEDS: MIDAZOLAM 2 MG/2 ML VIAL IV (09:48)
[2022-12-28] MEDS: DEXAMETHASONE 10 MG/ML VIAL 30 MG INJ (09:53)
[2022-12-28] MEDS: IOPAMIDOL 15 ML VIAL 3 ML INJ (09:53)
[2022-12-28] MEDS: BUPIVACAINE 0.25% (PF) VIAL 2 ML INJ (09:53)
--- NOTE | 2022-12-28 10:14 | P.PCN_ITS ---
Date/Time/Diagnoses Date of procedure: 12/28/22 Time of procedure: 10:14 Pre-procedure diagnosis: 1. CERVICAL STENOSIS, 2. CERVICAL HNP WITH UPPER EXTREMITY RADICULAR FEATURES Post-procedure diagnosis: same Procedure Notes Procedure: 1. FLUORSCOPICALLY GUIDED CONTRAST CONTROLLED INTERLAMINAR EPIDURAL STEROID INJECTION - C6/7 TL MADAI Indications: Brian is referred by Dr. Felton for treatment of Cervical HNP with Upper Extremity Paresthesias. Physician: Rafiq Busch Total Fluoroscopy time (seconds): 34 Total sedation minutes: 17 Complications: none Procedure in detail & Post-procedure care: FINDINGS Cervical Stenosis due to disc deterioration and nerve root irritation and nerve root irritation DESCRIPTION OF PROCEDURE Fluoroscopically guided, contrast-controlled C6/7 translaminar epidural steroid injection with conscious sedation. Following review of allergy and review of potential side effects and complications, including, but not necessarily limited to, infection, allergic reaction, local tissue breakdown, temporary as well as permanent nerve injury, stroke, paralysis, and possible , the patient indicated that patient understood and agreed to proceed. An informed consent document was signed by the patient, witnessed by a nurse, and placed in the patient's chart. Additionally, other treatment options including modalities, medications, and physical therapy were reviewed with the patient. After review of previous anaesthesic history and IV conscious sedation the patient was deemed safe to proceed with today?s procedure with IV conscious sedation as ASA class II designation. Safety time-out was performed to confirm patient ID, procedure to be performed and site of procedure. IV sedation was accomplished with a combination of 2mg of Versed administered by the RN after DO order, titrated to patient comfort during the course of the procedure while the patient remained responsive to all verbal commands. In the prone position, following sterile prep and drape of the cervical region, the C6/7 translaminar space was identified fluoroscopically. The skin was anesthetized via a 25-gauge 1.5-inch needle with 1% lidocaine solution. At this point, a 25-gauge, 2.5-inch short bevel spinal needle was atraumatically introduced and advanced under fluoroscopic guidance into epidural space at the C6/7 translaminar space. Depth was confirmed on lateral view. Radiological data, including multiple fluoroscopic views of the cervical spine, reveal a spinal needle at the C6/7 translaminar space. Lateral views then show placement of the needle in the epidural space. Subsequent views show contrast material flowing superiorly and inferiorly in the epidural space. DSA fluoroscopy with live contrast injection, once again, confirmed no vascular or intrathecal uptake. At this point, using loss of resistance technique with saline and air, the epidural space was entered. Following negative aspiration, injection of approximately 1.5 cc of Isovue-200 with live fluoroscopy in the AP view confirmed epidural flow in the epidural space without vascular or intrathecal uptake observed. Subsequently, a test dose of 1 cc of 1% lidocaine solution was injected and patient was observed for two minutes without signs or symptoms of complications, including abdominal pain, shortness of breath, bilateral upper or lower extremity weakness, nausea and vomiting, prior to steroid injection. At this point, 3cc or 30mg of dexamethasone was then injected without incident. The patient tolerated the procedure well without signs or symptoms of complic ations prior to being transferred to the recovery area for further monitoring, The patient was then transferred to the recovery area where they were observed for an appropriate period of time after the injection. The patient reported a VAS score of 6 prior to the procedure and a post-procedure VAS of 0. POST OP INSTRUCTIONS The patient was provided a Pain Log to continue to record their response to the target-specific procedure prior to follow-up visit with the referring provider. Additionally, specific post-injection care instructions and a contact number to our office were provided if concerns arise regarding possible complications associated with the procedure are suspected.
== END 2022-12-28 10:31 | disposition home or self-care (01) ==
LOC: RAD 08:23
PROVIDERS: PCP Registered Nurse; Referring Provider Physical Medicine & Rehabilitation; Visit Provider Physical Medicine & Rehabilitation
DX: M48.02 Spinal stenosis, cervical region (principal); M50.123 Cervical disc disorder at C6-C7 level with radiculopathy
CPT/HCPCS: 62321; 99152; J1100; J2250; J3490

== ENCOUNTER 2023-05-15 08:46 | Outpatient (CLI) | payer OTHER, SELFPAY ==
[2023-05-15] VITALS (9 sets, daily range): BP systolic 114–142; BP diastolic 59–81; PULSE 60–66; RESP 14–19; TEMP 36.4; O2SAT 95–100
--- NOTE | 2023-05-15 09:15 | DI.RAD.S_ITS ---
PROCEDURE: PAIN L/S TRANSFORAM INJECT PRIMO COMPARISON: None. INDICATIONS: SPONDYLOSIS FINDINGS: Single fluoroscopic image demonstrates needle placement at L4-L5. IMPRESSION: Single fluoroscopic image demonstrates needle placement at L4-L5. Please see operative report for details. Dictated by: Sacha Preston M.D. on 05/15/2023 at 12:26 Approved by: Sacha Preston M.D. on 05/15/2023 at 12:26
[2023-05-15] MEDS: MIDAZOLAM 2 MG/2 ML VIAL IV (09:46)
[2023-05-15] MEDS: BUPIVACAINE 0.25% (PF) VIAL 2 ML INJ (09:53)
[2023-05-15] MEDS: iopamidoL 15 ML VIAL 3 ML INJ (09:53)
[2023-05-15] MEDS: BETAMETHASONE 30 MG/5 ML MDV 12 MG INJ (09:53)
[2023-05-15] MEDS: DEXAMETHASONE 10 MG/ML VIAL 20 MG INJ (09:53)
--- NOTE | 2023-05-15 10:12 | PM.PROC.IR.1 ---
Date/Time/Diagnoses Date of procedure: 05/15/23 Time of procedure: 10:12 Pre-procedure diagnosis: 1. FORAMINAL STENOSIS WITH LE SYMPTOMS Procedure Notes Procedure: 1. FLUOROSCOPICALLY GUIDED CONTRAST CONTROLLED TRANSFORAMINAL EPIDURAL STEROID INJECTION - BILATERAL L4/5 TFESI Indications: Brian is referred by Dr. Felton for treatment of Foraminal Stenosis with bilateral LE Symptoms Physician: Rafiq Busch Total Fluoroscopy time (seconds): 21 Total sedation minutes: 18 Complications: none Procedure in detail & Post-procedure care: FINDINGS Foraminal Nerve Root Compression secondary to disc disease and facet hypertrophy DESCRIPTION OF PROCEDURE Following review of allergy and review of potential side effects and complications, including, but not necessarily limited to, infection, allergic reaction, local tissue breakdown, stroke, temporary or permanent nerve injury, paralysis, and possible , the patient indicated that the patient understood and agreed to proceed. An informed consent document was signed by the patient, witnessed by a nurse, and placed in the patient's chart. Additionally, other treatment options including medications, modalities, and physical therapy were reviewed with the patient. After review of previous anaesthesic history and IV conscious sedation the patient was deemed safe to proceed with today?s procedure with IV conscious sedation as ASA class II designation. Safety time-out was performed to confirm patient ID, procedure to be performed and site of procedure. IV sedation was accomplished with a combination of 2mg of Versed was administered by the RN after DO order, titrated to patient comfort during the course of the procedure while the patient remained responsive to all verbal commands In the prone position following sterile prep and drape of the lumbar region, the right L4/5 posterior neuroforamen was identified fluoroscopically. The skin was anesthetized via a 25-gauge 1.5-inch needle with 1% lidocaine solution. At this point, a 25-gauge 3.5-inch spinal needle was atraumatically introduced and advanced under fluoroscopic guidance through the posterior right L4/5 neuroforamen to approximately the anterior aspect of the canal. Depth was confirmed on lateral view. Following negative aspiration, injection of approximately 1.5cc of Isovue 200 under live fluoroscopy in the AP view confirmed excellent flow along the nerve root, into the epidural space without vascular or intrathecal uptake observed Radiological data, including multiple fluoroscopic views of the lumbosacral spine, reveal a spinal needle at the right L4/5 posterior neuroforamen. Subsequent views show flow of contrast material flowing superiorly and inferiorly along the nerve root confirming epidural flow. Subsequently, a test dose of 1.5cc of 1% lidocaine solution was administered and patient was observed for two minutes for signs or symptoms of complications, including abdominal pain, shortness of breath, bilateral upper or lower extremity weakness, nausea and vomiting, prior to steroid injection. At this point, a total of 2cc or 10mg of dexamethasone and 6mg betamethasone was injected without incident. Attention was then refocused to the left L4/5 level where the identical procedure was replicated. The procedure tolerated the procedure well without signs or symptoms of complications prior to transfer to the recovery area continued monitoring without incident. The patient was then transferred to the recovery area where they were observed for an appropriate time after the injection. The patient reported a VAS score of 8 prior to the procedure and a post-procedure VAS of 1. POST OP INSTRUCTIONS The patient was provided a Pain Log to continue to record their response to the target-specific procedure prior to follow-up visit with their referring physician. Additionally, specific post-injection care instructions and a contact number to our office were provided if concerns arise regarding possible complications associated with the procedure are suspected.
== END 2023-05-15 10:27 | disposition home or self-care (01) ==
LOC: RAD 08:47
PROVIDERS: PCP Registered Nurse; Referring Provider Physical Medicine & Rehabilitation; Visit Provider Physical Medicine & Rehabilitation
DX: M48.061 Spinal stenosis, lumbar region without neurogenic claudication (principal); M51.16 Intervertebral disc disorders with radiculopathy, lumbar region; M47.26 Other spondylosis with radiculopathy, lumbar region
CPT/HCPCS: 64483; 99152; J0702; J1100; J2250; J3490

== ENCOUNTER 2023-09-27 08:32 | Outpatient (CLI) | payer OTHER, SELFPAY ==
[2023-09-27] VITALS (8 sets, daily range): BP systolic 119–153; BP diastolic 63–83; PULSE 61–65; RESP 15–22; O2SAT 96–99
--- NOTE | 2023-09-27 09:37 | DI.RAD.S_ITS ---
PROCEDURE: PAIN L/S TRANSFORAMINAL INJECT INDICATIONS: Right L3-4 and L4-5 transforaminal MADAI COMPARISON: [facility], , PAIN L/S TRANSFORAMINAL INJECT, 06/13/2022, 9:45. FINDINGS: Fluoroscopic spot filming was performed to verify placement of spinal needles at the right L3-L4, L4-5 level(s), as labeled on the films. Appropriate location(s) of the needle tip(s) was confirmed by injection of iodinated contrast. IMPRESSION: Intra procedural examination demonstrating appropriate positions of the needles. Dictated by: Ferdinand Walker M.D. on 09/27/2023 at 11:46 Approved by: Ferdinand Walker M.D. on 09/27/2023 at 11:46
[2023-09-27] MEDS: MIDAZOLAM 2 MG/2 ML VIAL IV (09:42)
[2023-09-27] MEDS: BETAMETHASONE 30 MG/5 ML MDV 12 MG INJ (09:48)
[2023-09-27] MEDS: iopamidoL 15 ML VIAL 3 ML INJ (09:48)
[2023-09-27] MEDS: DEXAMETHASONE 10 MG/ML VIAL 20 MG INJ (09:48)
[2023-09-27] MEDS: BUPIVACAINE 0.25% (PF) VIAL 2 ML INJ (09:49)
--- NOTE | 2023-09-27 10:06 | P.PCN_ITS ---
Date/Time/Diagnoses Date of procedure: 09/27/23 Time of procedure: 10:06 Pre-procedure diagnosis: 1. FORAMINAL STENOSIS WITH LE SYMPTOMS Post-procedure diagnosis: same Procedure Notes Procedure: 1. FLUOROSCOPICALLY GUIDED CONTRAST CONTROLLED TRANSFORAMINAL EPIDURAL STEROID INJECTION - RIGHT L3/4 TFESI Indications: Brian is referred by MARLEE Felton for treatment of Foraminal Stenosis with right LE Symptoms Physician: Rafiq Busch Total Fluoroscopy time (seconds): 10 Total sedation minutes: 20 Complications: none Procedure in detail & Post-procedure care: FINDINGS Foraminal Nerve Root Compression secondary to disc disease and facet hypertrophy DESCRIPTION OF PROCEDURE Following review of allergy and review of potential side effects and complications, including, but not necessarily limited to, infection, allergic reaction, local tissue breakdown, stroke, temporary or permanent nerve injury, paralysis, and possible , the patient indicated that the patient understood and agreed to proceed. An informed consent document was signed by the patient, witnessed by a nurse, and placed in the patient's chart. Additionally, other treatment options including medications, modalities, and physical therapy were reviewed with the patient. After review of previous anaesthesic history and IV conscious sedation the patient was deemed safe to proceed with today?s procedure with IV conscious sedation as ASA class II designation. Safety time-out was performed to confirm patient ID, procedure to be performed and site of procedure. IV sedation was accomplished with a combination of 2mg of Versed was administered by the RN after DO order, titrated to patient comfort during the course of the procedure while the patient remained responsive to all verbal commands In the prone position following sterile prep and drape of the lumbar region, the right L3/4 posterior neuroforamen was identified fluoroscopically. The skin was anesthetized via a 25-gauge 1.5-inch needle with 1% lidocaine solution. At this point, a 25-gauge 3.5-inch spinal needle was atraumatically introduced and advanced under fluoroscopic guidance through the posterior right L3/4 neuroforamen to approximately the anterior aspect of the canal. Depth was confirmed on lateral view. Following negative aspiration, injection of approximately 1.5 cc of Isovue 200 under live fluoroscopy in the AP view conf irmed excellent flow along the nerve root, into the epidural space without vascular or intrathecal uptake observed Radiological data, including multiple fluoroscopic views of the lumbosacral spine, reveal a spinal needle at the right L3/4 posterior neuroforamen. Subsequent views show flow of contrast material flowing superiorly and inferiorly along the nerve root confirming epidural flow. Subsequently, a test dose of 1.5 cc of 1% lidocaine solution was administered and patient was observed for two minutes for signs or symptoms of complications, including abdominal pain, shortness of breath, bilateral upper or lower extremity weakness, nausea and vomiting, prior to steroid injection. At this point, a total of 2cc or 10mg of dexamethasone and 6mg of betamethasone was injected without incident. The patient tolerated the procedure well without signs or symptoms of complications prior to transfer to the recovery area continued monitoring without incident. The patient was then transferred to the recovery area where they were observed for an appropriate time after the injection. The patient reported a VAS score of 7 prior to the procedure and a post-procedure VAS of 0. POST OP INSTRUCTIONS The patient was provided a Pain Log to continue to record their response to the target-specific procedure prior to follow-up visit with their referring phy sician. Additionally, specific post-injection care instructions and a contact number to our office were provided if concerns arise regarding possible complications associated with the procedure are suspected.
--- NOTE | 2023-09-27 10:07 | P.PCN_ITS ---
Date/Time/Diagnoses Date of procedure: 09/27/23 Time of procedure: 10:07 Pre-procedure diagnosis: 1. FORAMINAL STENOSIS WITH LE SYMPTOMS Post-procedure diagnosis: same Procedure Notes Procedure: 1. FLUOROSCOPICALLY GUIDED CONTRAST CONTROLLED TRANSFORAMINAL EPIDURAL STEROID INJECTION - RIGHT L4/5 TFESI Indications: Brian is referred by MARLEE Felton for treatment of Foraminal Stenosis with Right LE Symptoms Physician: Rafiq Busch Total Fluoroscopy time (seconds): 10 Total sedation minutes: 20 Complications: none Procedure in detail & Post-procedure care: FINDINGS Foraminal Nerve Root Compression secondary to disc disease and facet hypertrophy DESCRIPTION OF PROCEDURE Following review of allergy and review of potential side effects and complications, including, but not necessarily limited to, infection, allergic reaction, local tissue breakdown, stroke, temporary or permanent nerve injury, paralysis, and possible , the patient indicated that the patient understood and agreed to proceed. An informed consent document was signed by the patient, witnessed by a nurse, and placed in the patient's chart. Additionally, other treatment options including medications, modalities, and physical therapy were reviewed with the patient. After review of previous anaesthesic history and IV conscious sedation the patient was deemed safe to proceed with today?s procedure with IV conscious sedation as ASA class II designation. Safety time-out was performed to confirm patient ID, procedure to be performed and site of procedure. IV sedation was accomplished with a combination of 2mg of Versed was administered by the RN after DO order, titrated to patient comfort during the course of the procedure while the patient remained responsive to all verbal commands In the prone position following sterile prep and drape of the lumbar region, the right L4/5 posterior neuroforamen was identified fluoroscopically. The skin was anesthetized via a 25-gauge 1.5-inch needle with 1% lidocaine solution. At this point, a 25-gauge 3.5-inch spinal needle was atraumatically introduced and advanced under fluoroscopic guidance through the posterior right L4/5 neuroforamen to approximately the anterior aspect of the canal. Depth was confirmed on lateral view. Following negative aspiration, injection of approximately 1.5cc of Isovue 200 under live fluoroscopy in the AP view con firmed excellent flow along the nerve root, into the epidural space without vascular or intrathecal uptake observed Radiological data, including multiple fluoroscopic views of the lumbosacral spine, reveal a spinal needle at the right L4/5 posterior neuroforamen. Subsequent views show flow of contrast material flowing superiorly and inferiorly along the nerve root confirming epidural flow. Subsequently, a test dose of 1.5 cc of 1% lidocaine solution was administered and patient was observed for two minutes for signs or symptoms of complications, including abdominal pain, shortness of breath, bilateral upper or lower extremity weakness, nausea and vomiting, prior to steroid injection. At this point, a total of 2cc or 10mg of dexamethasone and 6mg of betamethasone was injected without incident. The procedure tolerated the procedure well without signs or symptoms of complications prior to transfer to the recovery area continued monitoring without incident. The patient was then transferred to the recovery area where they were observed for an appropriate time after the injection. The patient reported a VAS score of 7 prior to the procedure and a post- procedure VAS of 0. POST OP INSTRUCTIONS The patient was provided a Pain Log to continue to record their response to the target-specific procedure prior to follow-up visit with their referring p hysician. Additionally, specific post-injection care instructions and a contact number to our office were provided if concerns arise regarding possible complications associated with the procedure are suspected.
== END 2023-09-27 10:15 | disposition home or self-care (01) ==
LOC: RAD 08:33
PROVIDERS: PCP Registered Nurse; Referring Provider Physical Medicine & Rehabilitation; Visit Provider Physical Medicine & Rehabilitation
DX: M48.061 Spinal stenosis, lumbar region without neurogenic claudication (principal); M51.16 Intervertebral disc disorders with radiculopathy, lumbar region; M47.26 Other spondylosis with radiculopathy, lumbar region
CPT/HCPCS: 64483; 64484; 99152; J0702; J1100; J2250; J3490

== ENCOUNTER 2024-04-15 07:12 | Outpatient (CLI) | payer OTHER, SELFPAY ==
[2024-04-15] VITALS (8 sets, daily range): BP systolic 118–160; BP diastolic 67–84; PULSE 60–73; RESP 12–20; TEMP 36.4; O2SAT 97–99
--- NOTE | 2024-04-15 07:13 | DI.RAD.S_ITS ---
PROCEDURE: PAIN L INTERLAMINAR/CAUDAL INJ INDICATIONS: L 4/5 TL MADAI COMPARISON: None. FINDINGS: Fluoroscopic spot filming was performed to verify placement of spinal needles at the L4-5 level(s), as labeled on the films. Appropriate location(s) of the needle tip(s) was confirmed by injection of iodinated contrast. IMPRESSION: Contrast and needle placement overlying L4-5. Dictated by: Barbara Andrade M.D. on 04/15/2024 at 21:22 Approved by: Barbara Andrade M.D. on 04/15/2024 at 21:23
[2024-04-15] MEDS: MIDAZOLAM 2 MG/2 ML VIAL IV (08:01)
[2024-04-15] MEDS: BUPIVACAINE 0.25% (PF) VIAL 2 ML INJ (08:10)
[2024-04-15] MEDS: BETAMETHASONE 30 MG/5 ML MDV 12 MG INJ (08:11)
[2024-04-15] MEDS: iopamidoL 15 ML VIAL 3 ML INJ (08:11)
[2024-04-15] MEDS: DEXAMETHASONE 10 MG/ML VIAL INJ (08:11)
--- NOTE | 2024-04-15 08:21 | P.PCN_ITS ---
Date/Time/Diagnoses Date of procedure: 04/15/24 Time of procedure: 08:21 Pre-procedure diagnosis: 1. HNP WITH RADICULAR FEATURES, 2. MULTILEVEL CENTRAL STENOSIS, Post-procedure diagnosis: same Procedure Notes Procedure: 1. FLUOROSCOPICALLY GUIDED CONTRAST CONTROLLED INTERLAMINAR EPIDURAL STEROID INJECTION -L4/5 Indications: Brian is referred by RADHA Felton for treatment of Bilateral Foraminal Stenosis R>L LE symptoms. Physician: Rafiq Busch Total Fluoroscopy time (seconds): 10 Total sedation minutes: 15 Complications: none Procedure in detail & Post-procedure care: FINDINGS Multilevel Central Spinal Stenosis with Nerve Root Compression DESCRIPTION OF PROCEDURE Fluoroscopically guided, contrast-controlled L4/5 translaminar epidural steroid injection. Following review of allergy and review of potential side effects and complications, including, but not necessarily limited to, infection, allergic reaction, local tissue breakdown, temporary as well as permanent nerve injury, paralysis, stroke and possible , the patient indicated that the patient understood and agreed to proceed. An informed consent document was signed by the patient, witnessed by a nurse, and placed in the patient's chart. Additionally, other treatment options including modalities, medications, and physical therapy were reviewed with the patient. After review of previous anaesthesic history and IV conscious sedation the patient was deemed safe to proceed with today?s procedure with IV conscious sedation as ASA class II designation. Safety time-out was performed to confirm patient ID, procedure to be performed and site of procedure. IV sedation was accomplished with a combination of 2mg of Versed was administered by the RN after DO order, titrated to patient comfort during the course of the procedure while the patient remained responsive to all verbal commands In the prone position, following sterile prep and drape of the lumbar region, the L4/5 translaminar space was identified fluoroscopically. The skin was anesthetized via a 25-gauge, 1.5inch needle with 1% lidocaine solution. At this point, a 22-gauge short bevel spinal needle was atraumatically introduced and ad vanced under fluoroscopic guidance into the region of the L4/5 translaminar space. Depth was confirmed on lateral view. Radiological data, including multiple fluoroscopic views of the lumbar spine, reveal a spinal needle at the L4/5 translaminar space. Lateral views then show placement of the needle in the epidural space. Subsequent views show contrast material flowing superiorly and inferiorly in the epidural space. No vascular or intrathecal uptake is observed. At this point, using loss of resistance technique with saline and air, the epidural space was entered. This was confirmed following negative aspiration with injection of approximately 1.5cc of Isovue 200, showing excellent epidural flow without vascular or intrathecal uptake. At this point, 1cc of 1% lidocaine solution combined with 3cc or 10mg of dexamethasone and 12mg betamethasone was injected without incident. The patient tolerated the procedure well without signs or symptoms of complications prior to transfer to the recovery area continued monitoring without incident. The patient was then transferred to the recovery area where they were observed for an appropriate period of time after the injection. The patient reported a VAS score of 6 prior to the procedure and a post- procedure VAS of 0. POST OP INSTRUCTIONS The patient was provided a Pain Log to continue to record their response to the target-specific procedure prior to follow-up visit with their referring physician. Additionally, specific post-injection care instructions and a contact number to our office were provided if concerns arise regarding possible complications associated with the procedure are suspected.
== END 2024-04-15 08:45 | disposition home or self-care (01) ==
LOC: RAD 07:12
PROVIDERS: PCP Registered Nurse; Referring Provider Physical Medicine & Rehabilitation; Visit Provider Physical Medicine & Rehabilitation
DX: M51.16 Intervertebral disc disorders with radiculopathy, lumbar region (principal); M48.061 Spinal stenosis, lumbar region without neurogenic claudication
CPT/HCPCS: 62323; 99152; J0702; J1100; J2250; J3490